=== PATIENT | female | born 1980 | race Caucasian/White ===

== ENCOUNTER → 2023-08-15 08:01 | Outpatient (REF) | payer BC, SELFPAY | LOC: WDC 08:01 | PROVIDERS: ATTENDING PHYSICIAN Obstetrics & Gynecology | DX: Z12.31 Encounter for screening mammogram for malignant neoplasm of breast (principal) | CPT/HCPCS: 77063; 77067 ==

== ENCOUNTER → 2024-10-29 11:30 | Outpatient (REF) | payer BC, SELFPAY | LOC: PAVMRI 11:30 | PROVIDERS: ATTENDING PHYSICIAN Nurse Practitioner Family | DX: S39.81XA Other specified injuries of abdomen, initial encounter (principal) | CPT/HCPCS: 72195 ==